=== PATIENT | female | born 1945 ===

== ENCOUNTER 2017-03-24 15:30 | Observation (INO) | payer MEDICARE ==
[~2017-03-24] VITALS: Ht 152.4 cm; Wt 68.2 kg
--- NOTE | ~2017-03-24 | HP ---
PATIENT'S NAME: OLIVE CROCKETT [facility] AGE: 72 Y [address] ROOM: [id number] [place], [place] [address] LOCATION: GPCU ADMIT DATE: 03/24/2017 History & Physical DISCHARGE DATE: FAMILY PHYSICIAN: PHYSICIAN, UNKNOWN ATTENDING PHYSICIAN: MARIO PLATT DATE OF SERVICE: 03/24/2017 CHIEF COMPLAINT: Nausea, vomiting, dizziness, sent over from [facility]rology Clinic. HISTORY OF PRESENT ILLNESS: This is a very pleasant 72-year-old female who has a past medical history of longstanding, decades-long diabetes complicated by neuropathy, retinopathy, and nephropathy, as well as coronary artery disease with ischemic cardiomyopathy and systolic CHF, who was recently admitted with a CHF exacerbation at [facility]. The patient was aggressively diuresed and discharged on 20 mg of torsemide p.o. b.i.d. She reports today upon presentation to Nephrology Clinic that she has been nauseated, vomiting of late, and has had progressive dizziness with concomitant 15-pound weight loss over the past several days including this hospitalization. In the Renal Clinic, she was noted to have a pulse of 73, blood pressure 70/40, and initial lab work showed that her creatinine which usually runs GFR approximately 25 range had decreased to 19. Creatinine is 2.56 in the Nephrology Clinic. We are still obtaining some outside records to determine current baseline creatinine; however, this is certainly a decrease from her prior normal. The patient was given IV fluids immediately upon arrival at the request of Nephrology, and Hospitalist Service has been requested to admit the patient for further cares and management. The patient currently denies any significant ongoing nausea and vomiting. She notes no recent fevers or chills. No chest pain or shortness of breath currently. No abdominal pain, dysuria, or bowel concerns. She does note occasional nocturnal urination, which is new in onset and prompted concern for urinary tract infection, which may have contributed to her acute renal failure. She is without lower extremity swelling per her report and again feels well currently. Following the initial liter of fluids, the patient is feeling markedly improved. PAST MEDICAL HISTORY: 1. Essential hypertension. 2. Insulin-dependent diabetes with neuropathy, retinopathy and nephropathy, previously very poorly controlled with A1cs 13 to 14 range, most recently approximately 8. 3. History of bradycardia status post pacemaker. 4. Coronary artery disease. 5. Ischemic cardiomyopathy. Await records of recent echocardiogram to PATIENT'S NAME: OLIVE CROCKETT [facility] AGE: 72 Y [address] ROOM: [id number] [place], [place] [address] [facility] ADMIT DATE: 03/24/2017 History & Physical DISCHARGE DATE: FAMILY PHYSICIAN: PHYSICIAN, UNKNOWN ATTENDING PHYSICIAN: MARIO PLATT quantify systolic function. 6. CKD stage 4. 7. History of breast cancer status post chemotherapy and radiation therapy in 1994. SURGICAL HISTORY: Appendectomy, esophageal dilation, and left mastectomy. FAMILY HISTORY: Father had coronary disease, diabetes, and hypertension. Otherwise, reviewed and noncontributory to current presentation. SOCIAL HISTORY: Occasional alcohol use, but rare and lifelong nonsmoker. No illicit drug use. ALLERGIES: NO KNOWN DRUG ALLERGIES PER CHART REVIEW OR ON DISCUSSION WITH THE PATIENT. HOME MEDICATIONS: 1. Aspirin 81 mg daily. 2. Carvedilol 25 mg p.o. b.i.d. 3. Clopidogrel 75 mg p.o. daily. 4. Fenofibrate 160 mg p.o. daily. 5. Gabapentin 300 mg p.o. daily p.r.n. restless legs. 6. Insulin lispro 30 units subcu every morning before breakfast. 7. Insulin lispro 23 units subcu every evening before supper. 8. Losartan 25 mg b.i.d. p.o. 9. NPH insulin 50 units subcu b.i.d. 10. Pantoprazole 40 mg p.o. b.i.d. 11. Torsemide 20 mg p.o. b.i.d. 12. Tramadol 50 mg p.o. q.6 hours p.r.n. REVIEW OF SYSTEMS: Complete review of systems performed is negative except as noted above in the HPI. PHYSICAL EXAMINATION: VITAL SIGNS: On arrival, the patient is afebrile, pulse in the 70s, blood pressure now 140s/70s, respirations 16, saturating well into the 90s on room air. GENERAL: The patient is in no apparent distress, currently undergoing retroperitoneal ultrasound of the kidneys and comfortable. HEENT: Head is normocephalic, atraumatic. Eyes are pupils equal, round, and reactive to light. Extraocular muscles intact. No scleral icterus. No conjunctival injection. ENT is with moist mucous membranes. No nasal PATIENT'S NAME: OLIVE CROCKETT [facility] AGE: 72 Y [address] ROOM: [id number] [place], [place] [address] LOC[facility] ADMIT DATE: 03/24/2017 History & Physical DISCHARGE DATE: FAMILY PHYSICIAN: PHYSICIAN, UNKNOWN ATTENDING PHYSICIAN: MARIO PLATT discharge. NECK: Supple. No lymphadenopathy. No thyromegaly. No JVD. CARDIOVASCULAR: Regular rate and rhythm. No murmurs, rubs, or gallops appreciated. Normal pulses with 2+ bilaterally in radial and dorsalis pedis. RESPIRATIONS: Clear to auscultation bilaterally. Lung sounds are diminished though respiratory effort is normal and as mentioned saturating well. ABDOMEN: Soft, nontender, nondistended with normoactive bowel sounds. EXTREMITIES: Without appreciable edema. No skin lesions on exposed skin of extremities. NEUROLOGIC: Alert and oriented, cooperative and pleasant with 5/5 bilateral strength. No sensory deficits appreciated. PSYCH: Normal mood and affect. LABS AND IMAGING: Reviewed recent lab work from Nephrology Clinic. Current labs here are pending including urine studies, but labs from clinic do show sodium 142, potassium 4.3, chloride 105, bicarb 26, BUN 55, creatinine is 2.56, calcium is 8.9. Retroperitoneal ultrasound is pending also. ASSESSMENT: 1. Acute renal failure, likely secondary to over-diuresis versus urinary tract infect. 2. Insulin-dependent diabetes complicated by neuropathy, retinopathy and nephropathy, poorly controlled. 3. History of systolic congestive heart failure with recent exacerbation. 4. Coronary artery disease. 5. Ischemic cardiomyopathy. 6. CKD stage 4. 7. History of breast cancer. 8. History of bradycardia with pacemaker implantation. PLAN: The patient's blood pressure has markedly improved with rehydration. We will continue gentle fluids overnight at 50 mL per hour and continue evaluation for DULCE with urine lytes, most notably urea to creatinine ratio as well as renal ultrasound. We will avoid nephrotoxic agents to include her home torsemide, losartan, and NSAIDs. We will follow Is and Os and daily weights. Cipro has been ordered by Nephrology to treat possible UTI in the setting of a urinalysis, which would be suggestive and with nocturnal frequent urination. With regard to the patient's diabetes, we will continue her on her home insulin regimen and treat with Accu-Cheks and additional sliding scale as felt necessary. We will continue home aspirin, Plavix, Coreg for coronary disease and CHF holding angiotensin receptor blockade currently given renal function. We will continue gabapentin for restless legs and neuropathy. Heparin 5000 units subcu t.i.d. for DVT prophylaxis. PATIENT'S NAME: OLIVE CROCKETT [facility] AGE: 72 Y [address] ROOM: [place] [address] LOC[facility] ADMIT DATE: 03/24/2017 History & Physical DISCHARGE DATE: FAMILY PHYSICIAN: PHYSICIAN, UNKNOWN ATTENDING PHYSICIAN: MARIO PLATT The patient is a full code. I spent 35 minutes on date of admission reviewing outside records as well as in discussion with Dr. Richardson and on [id number] evaluation of this patient. MD LAWRENCE VELEZ/marko /[id number] D: 315 T: 847 HISTORY & PHYSICAL
--- NOTE | ~2017-03-24 | DS ---
PATIENT'S NAME: OLIVE CROCKETT [facility] AGE: 72 Y [address] ROOM: [place] [address] LOCATION: GPCU ADMIT DATE: 03/24/2017 Discharge Summary DISCHARGE DATE: 03/25/2017 FAMILY PHYSICIAN: Iraj Greenwood MD ATTENDING PHYSICIAN: Mitch Orozco PRINCIPAL DIAGNOSES: 1. Hypertension. 2. Acute kidney injury on chronic kidney disease, 3 to 4. 3. Type 2 diabetes. 4. Essential hypertension. 5. Coronary artery disease. HOSPITAL COURSE: This is a 72-year-old female who presented from her preparatory technician, Dr. Richardson's office after she was noted to be hypertensive with complaints of dizziness, lightheadedness, and subsequently admitted for workup. The patient was hydrated and was noted to be an DULCE based on her initial creatinine reading. The patient was hydrated and had a workup to rule out infections and was negative. The patient during my evaluation today is doing very well, ambulated well, and no dizziness, lightheadedness, or no signs of indwelling infection noted. The patient was also evaluated by Dr. Richardson as well. At this point, the patient is to be discharged back home and at this point, we will cut down her torsemide to 20 mg daily and she will follow up with Dr. Richardson as an outpatient and has her PCI scheduled for this coming Monday and on that day, she is to hold her torsemide dosage. PHYSICAL EXAMINATION: GENERAL: The patient is awake, alert, oriented x3, and in no acute distress. CHEST: Clear to auscultation bilaterally. HEART: S1, S2. Regular rate and rhythm. ABDOMEN: Soft, nontender, and nondistended. EXTREMITIES: Without edema. MEDICATIONS: Per SEP. DISPOSITION: Home. Less than 30 minutes were spent in discharge planning and facilitating. MD SAKINA FERNANDEZ/marko PATIENT'S NAME: OLIVE CROCKETT [facility] AGE: 72 Y [address] ROOM: [place] [address] LOCATION: GPCU ADMIT DATE: 03/24/2017 Discharge Summary DISCHARGE DATE: 03/25/2017 FAMILY PHYSICIAN: Iraj Greenwood MD ATTENDING PHYSICIAN: Mitch Orozco /[id number] d: 03/25/17 1526 t: 03/26/17 1608, DISCHARGE SUMMARY
[2017-03-24] MEDS ORDERED: DEMADEX20 MG PO (16:48)
[2017-03-24] MEDS ORDERED: COREG25 MG PO (16:48)
[2017-03-24] MEDS ORDERED: PLAVIX75 MG PO (16:48)
[2017-03-24] MEDS ORDERED: COZAAR25 MG PO (16:49)
[2017-03-24] MEDS ORDERED: TRICOR 160 MG160 MG PO (16:50)
[2017-03-24] MEDS ORDERED: NOVOLIN N100 UNIT/1 SUB-Q (16:50)
[2017-03-24] MEDS ORDERED: ASPIRIN EC81 MG PO (16:50)
[2017-03-24] MEDS ORDERED: GABAPENTIN300 MG PO (16:51)
[2017-03-24] MEDS ORDERED: PROTONIX40 MG PO (16:51)
[2017-03-24] MEDS ORDERED: ULTRAM50 MG PO (16:52)
[2017-03-24] MEDS ORDERED: HUMALOG100 UNIT/1 SUB-Q ×2 (16:57→16:58)
--- NOTE | 2017-03-24 17:04 | NUR ---
Pt is 72 y/o female admit for hypotension/ARF for hospitalist. to consult. Pt alert and oriented x3. Hx pacemaker/AICD,recent stent 2 weeks ago at [facility], pt is scheduled for an arthroplasty next week, htn,hypercholest, IDDM,gerd,restless legs,depression,anxiety,CAD. Resides at home with her fiance. Pt saw on Monday for a regular appt, had lab work done and then found abnormal kidney function results. Scheduled to see today who then sent her here for admission for at least the weekend. Allergy to PCN, red and yellow bracelets on.
--- NOTE | 2017-03-25 04:12 | NUR ---
Significant Event: PT A/O X3. VSS. SBP 130-150 HR 70'S SATS 95% RA. PT DENIES PAIN. IV IN RIGHT HAND, NS AT 50ML/HR. PT BLOOD SUGAR @ 2100 288, PT ON MODERATE S/S ACHS AND 50 UNITS NPH @ BREAKFAST AND BEDTIME. PT WANTED 50 UNITS OF NPH, REFUSED 6 UNITS OF NOVOLOG. STRICT I & O'S AND STANDING DAILY WTS. Follow up: FOLLOW CARE PLAN
[2017-03-25 05:06] LABS: ALBUMIN 3.1 gm/dL (3.5-5.0); ANION GAP 10.8 (10.0-19.0); CALCIUM 8.6 mg/dL (8.5-10.5); CREATININE 2.1 mg/dL (0.5-1.1); PHOSPHORUS 3.8 mg/dL (2.5-4.9); POTASSIUM 3.8 mMol/L (3.7-5.1)
--- NOTE | 2017-03-25 14:25 | NUR ---
Dismissed to home. VSS. IV out, catheter tip intact. Denies lightheadedness, shortness of breath or dizziness. Discussed follow up appointments, medication changes and when to hold medication per Dr. Richardson.
== END 2017-03-25 14:24 | disposition disaster alternative care site (69) ==
LOC: GPCU 16:25
PROVIDERS: Internal Medicine Nephrology; ADMIT Internal Medicine
DX: I95.9 Hypotension, unspecified (principal); N17.9 Acute kidney failure, unspecified; I25.10 Atherosclerotic heart disease of native coronary artery without angina pectoris; I13.0 Hypertensive heart and chronic kidney disease with heart failure and stage 1 through stage 4 chronic kidney disease, or unspecified chronic kidney disease; E11.22 Type 2 diabetes mellitus with diabetic chronic kidney disease; N18.4 Chronic kidney disease, stage 4 (severe); I50.20 Unspecified systolic (congestive) heart failure; I25.5 Ischemic cardiomyopathy; E11.40 Type 2 diabetes mellitus with diabetic neuropathy, unspecified; E11.319 Type 2 diabetes mellitus with unspecified diabetic retinopathy without macular edema; E11.21 Type 2 diabetes mellitus with diabetic nephropathy; Z85.3 Personal history of malignant neoplasm of breast; Z79.82 Long term (current) use of aspirin; Z79.4 Long term (current) use of insulin; Z79.899 Other long term (current) drug therapy; Z90.49 Acquired absence of other specified parts of digestive tract; Z90.12 Acquired absence of left breast and nipple; Z98.890 Other specified postprocedural states
CPT/HCPCS: J1644; J7030

== ENCOUNTER → 2017-03-24 | Outpatient (CLI) | payer MEDICARE ==
[~2017-03-24] MED LIST: ASPIRIN EC81 MG PO; COREG25 MG PO; COZAAR25 MG PO; DEMADEX20 MG PO; GABAPENTIN300 MG PO; HUMALOG100 UNIT/1 SUB-Q; NOVOLIN N100 UNIT/1 SUB-Q; PLAVIX75 MG PO; PROTONIX40 MG PO; TRICOR 160 MG160 MG PO; ULTRAM50 MG PO
== END ==
LOC: LGSMG 14:13
DX: N18.4 Chronic kidney disease, stage 4 (severe) (principal)

== ENCOUNTER → 2017-04-03 | Outpatient (CLI) | payer MEDICARE | LOC: LGSMG 10:23 | DX: N18.4 Chronic kidney disease, stage 4 (severe) (principal); N39.0 Urinary tract infection, site not specified ==